=== PATIENT | male | born 1950 | race Caucasian/White ===

== ENCOUNTER 2023-01-08 20:20 | Emergency (ER) | payer MEDICARE, SELFPAY ==
--- NOTE | ~2023-01-08 | CT_ITS ---
CT of the Abdomen and Pelvis: Indication: Abdominal pain Technique: 2.5 mm axial scans were obtained through the abdomen and pelvis following intravenous adm inistration of 100 cc of Omnipaque 350. Dose reduction technique was used on this scan by utilizing a utomated exposure control and iterative reconstruction technique. The dose-length product (DLP) was 7 94.43 mGy-cm. Findings: Scans through the lung bases are unremarkable. The liver, spleen, pancreas, gallbladder, and adrenal glands are within normal limits. Small bilatera l nonobstructing renal stones are present. Bilateral renal cysts are present. No evidence of aortic a neurysm. No lymphadenopathy. There is wall thickening of the distal ascending colon with underlying diverticular disease of the de scending and sigmoid colon. No abscess or free air. No bowel obstruction. Images through the pelvis were performed. Prostate gland is markedly enlarged, and indents through th e bladder base. Questionable mild urinary bladder wall thickening. No ascites. Impression: Acute diverticulitis of the distal descending colon. No abscess or free air. No bowel obstruction. Markedly enlarged prostate gland which appears to indent through the bladder base. Underlying neoplas tic disease is difficult to exclude based on this examination. Possible mild urinary bladder wall thickening. Correlate for cystitis. Small bilateral nonobstructing renal stones. Reviewed, dictated and finalized at [facility]. Impression: Acute diverticulitis of the distal descending colon. No abscess or free air. No bowel obstruction. Markedly enlarged prostate gland which appears to indent through the bladder ba se. Underlying neoplastic disease is difficult to exclude based on this examina tion. Possible mild urinary bladder wall thickening. Correlate for cystitis. Small bilateral nonobstructing renal stones.
[2023-01-08 20:34] VITALS: BP 153/85; PULSE 82; RESP 14; TEMP 36.6; O2SAT 96
[2023-01-08 20:52] LABS: Basophils Percent Auto 0.4 % (0.2-1.2); Eosinophils Absolute Auto 0.3 K/mm3 (0-0.3); Eosinophils Percent Auto 2.4 % (0-4.4); Hematocrit 39.2 % (42.0-52.0); Hemoglobin 13.5 g/dL (14.0-18.0); Immature Granulocyte Absolute 0.02 K/mm3 (0.00-0.031); Immature Granulocyte Percent A 0.2 % (0-0.5); Lymphocytes Absolute Auto 1.68 K/mm3 (0.9-3.2); Lymphocytes Percent Auto 16.5 % (18.3-44.2); Mean Corpuscular HGB Conc 34.4 g/dl (32-36); Mean Corpuscular Hemoglobin 30.6 pg (26-34); Mean Corpuscular Volume 88.9 fl (80-100); Mean Platelet Volume 9.2 fl (7.4-10.4); Monocytes Absolute Auto 0.6 K/mm3 (0.1-0.6); Monocytes Percent Auto 5.8 % (2.6-8.5); Neutrophils Absolute Auto 7.6 K/mm3 (1.3-6.7); Neutrophils Percent Auto 74.7 % (45.5-73.1); Platelet Count Result 287 k/mm3 (150-375); Red Blood Count 4.41 M/mm3 (4.6-6.20); White Blood Count 10.2 K/mm3 (4.5-10.0)
[2023-01-08 20:54] LABS: Appearance Urine Clear (Clear); Bilirubin Urine Negative (Negative); Blood Urine Negative (Negative); Color Urine Yellow (Yellow); Glucose Urine UA Negative (Negative); Ketones Urine Negative (Negative); Leukocyte Esterase Ur Negative LEU/UL (Negative); Nitrate Urine Negative (Negative); Protein Urine Negative (Negative); Specific Grav Ur 1.018 (1.001-1.035); Urobilinogen Urine 0.2 mg/dL (<2.0)
[2023-01-08 21:02] LABS: Alanine Aminotransferase 36 U/L (6-50); Albumin Level 4.2 g/dL (3.5-5.1); Alkaline Phosphatase 58 U/L (38-126); Anion Gap 9 mmol/L (8-16); Aspartate Amino Transferase 27 U/L (17-59); Bilirubin,Total 0.4 mg/dL (0.2-1.3); Blood Urea Nitrogen 21 mg/dL (9-20); Calcium 9.8 mg/dL (8.4-10.2); Carbon Dioxide 23 mmol/L (22-30); Chloride 105 mmol/L (98-107); Estimated CRCL calculation 51 ml/min; Estimated Glomerular Filt Rate > 60; Glucose 119 mg/dL (65-110); Lipase 122 U/L (23-300); Potassium 3.8 mmol/L (3.4-5.0); Sodium 137 mmol/L (137-145)
[2023-01-08 21:03] LABS: Add Urine Microscopic? NO
--- NOTE | 2023-01-08 21:12 | ED.ABDPAIN ---
HPI - Abdominal Pain General Chief Complaint: Abdominal Pain Stated Complaint: I think I have diverticulitis Time Seen by Provider: 01/08/23 20:49 History of Present Illness HPI narrative: This is a 72-year-old male, with past history of diverticulitis, presents to the emergency department complaining of left lower quadrant abdominal pain for the past 2 days. The patient states in the over the past 2 days he has noticed a 4/10 cramping and sometimes dull left lower quadrant abdominal pain. He denies associated fevers, chills, nausea or vomiting. He denies diarrhea or bleeding from any source. He states this pain is similar to previous abdominal pain associated with diverticulitis though not as extreme Related Data Allergies Allergy/AdvReac Type Severity Reaction Status Date / Time No Known Allergies Allergy Verified 01/08/23 21:17 Review of Systems Review of Systems: CONSTITUTIONAL: Denies fever, chills, or sweats. CARDIOVASCULAR: Denies chest pain, palpitations, or edema. RESPIRATORY: Denies cough or dyspnea. GASTROINTESTINAL: Left lower quadrant abdominal pain denies nausea, vomiting, or diarrhea. GENITOURINARY: Denies dysuria or hematuria. SKIN: Denies rash or itching. MUSCULOSKELETAL: Denies back pain, joint pain, or myalgia. NEUROLOGIC: Denies headache, numbness, dizziness, or weakness. PSYCHIATRIC: Denies anxiety or depression. [facility] Past Medical History Medical History (Updated 01/08/23 @ 22:32 by Prashanth Skinner MD) History of diverticulitis Surgical History Surgical History (Updated 01/08/23 @ 22:24 by Prashanth Skinner MD) No significant past surgical history Social History Social History (Updated 01/08/23 @ 22:24 by Prashanth Skinner MD) Smoking status: Never smoker Alcohol intake: current Drinks per week: 7 Substance use: never Exam Narrative: GENERAL: Well-developed, well-nourished, and in no acute distress. HEAD: Normocephalic, atraumatic. EYES: PERRLA and EOMI. ENT: Nares clear, no rhinorrhea or epistaxis. Mucous membranes moist. Oropharynx without tonsillar hypertrophy exudate or other lesions. CHEST: Clear to auscultation. No respiratory distress. No wheezes rales or rhonchi HEART: Regular rate and rhythm. No murmur heard. Normal peripheral pulses. ABDOMEN: Soft, mild tenderness to palpation in the left lower quadrant without rebound or guarding, nondistended, normal active bowel sounds. EXTREMITIES: Normal range of motion. No edema. SKIN: Warm, dry, no rash. NEURO: No focal deficits. Alert and oriented x3. PSYCH: Normal mood and affect. Course Course Emergency Course: 22:25 - CT of the abdomen demonstrates acute diverticulitis of the acute descending colon without abscess or obstruction. White blood cell count slightly elevated at 10.2. Hemoglobin slightly decreased at 13.5 with unknown baseline. Chemistries demonstrate mild creatinine elevation of 1.1, unknown baseline. UA unremarkable. Considering the patient's vital signs within normal limits, benign abdominal exam and current ability to tolerate p.o., will treat with oral antibiotics and outpatient follow-up. Discussed return and emergency precautions including signs/symptoms of acute abdomen and intractable vomiting. The patient voiced understanding and is comfortable with the plan. All questions answered to his satisfaction. Vital Signs Vital signs: Vital Signs Temperature 97.8 F 01/08/23 20:34 Pulse Rate 82 01/08/23 20:34 Respiratory Rate 14 01/08/23 20:34 Blood Pressure 153/85 H 01/08/23 20:34 Pulse Oximetry 96 01/08/23 20:34 Oxygen Delivery Room Air 01/08/23 20:34 Temperature 97.8 F 01/08/23 20:34 Pulse Rate 82 01/08/23 20:34 Respiratory Rate 14 01/08/23 20:34 Blood Pressure 153/85 H 01/08/23 20:34 Pulse Oximetry 96 01/08/23 20:34 Oxygen Delivery Room Air 01/08/23 20:34 MDM - Abdominal Pain MDM Narrative Medical decision making narrative:
[2023-01-08] MEDS: AMOXICILLIN/CLAVULANATE K 875-125 MG TAB 1 TABLET PO (22:30)
== END 2023-01-08 22:53 | disposition home or self-care (01) ==
PROVIDERS: Physician Assistant; Emergency Provider Preventive Medicine Aerospace Medicine
DX: K57.32 Diverticulitis of large intestine without perforation or abscess without bleeding (principal); N20.0 Calculus of kidney; R93.41 Abnormal radiologic findings on diagnostic imaging of renal pelvis, ureter, or bladder; N40.0 Benign prostatic hyperplasia without lower urinary tract symptoms
CPT/HCPCS: 36415; 74177; 80053; 81003; 83690; 85025; 99284; A9270; Q9967